=== PATIENT | female | born 1995 | race African-American/Black ===

== ENCOUNTER 2025-06-27 17:45 | Emergency (ER) | payer OTHER, SELFPAY ==
[2025-06-27 17:53] VITALS: BP 111/75
[2025-06-27 18:49] LABS: Hematocrit 33.1 % (37.0-47.0); Hemoglobin 11.3 g/dL (12.0-16.0); Mean Corp Hgb Conc. 34.1 g/dL (33.0-37.0); Mean Corpuscular Volume 87.6 fL (81.0-99.0); Nucleated Red Blood Cells % 0 %; Platelet Count 346 10^3/uL (130-400); Red Cell Dist. Width 11.9 % (11.5-14.5)
[2025-06-27 19:12] LABS: HCG, Serum Qualitative Screen Negative
[2025-06-27 19:24] LABS: ALT (SGPT) 21 U/L (0-35); AST (SGOT) 24 U/L (14-36); Albumin 4.3 g/dl (3.5-5.0); Alkaline Phosphatase 68 U/L (38-126); Blood Urea Nitrogen 13 mg/dl (7-17); Calcium 9.3 mg/dl (8.4-10.2); Carbon Dioxide 25 mmol/L (22-30); Chloride 105 mmol/L (98-107); Glucose 84 mg/dl (70-99); Lithium 0.2 mmol/L (0.6-1.2); Potassium 4.2 mmol/L (3.5-5.1); Sodium 135 mmol/L (135-145); Total Protein 7.5 g/dl (6.3-8.2); eGFR > 60.00
[2025-06-27] MEDS: BENADRYL 50 MG PO (21:53)
[2025-06-27 21:55] LABS: Urine Character Clear (Clear)
[2025-06-27 22:04] LABS: Urine Red Blood Cell 0-2 /HPF (0-2); Urine Squamous Cell >30 /LPF (Few)
[2025-06-27 22:05] LABS: Urine White Cell 21-25 /HPF (0-5)
[2025-06-27 22:20] VITALS: BP 107/71
--- NOTE | 2025-06-27 22:20 | ED.GENMED ---
History of Present Illness
General
Chief Complaint: Medication Reaction
Time Seen by Provider: 06/27/25 20:47
History of Present Illness
History of Present Illness:
Patient is a 30-year-old woman with history of seizures, prior substance use disorder, newly diagnosed bipolar disorder presenting to the emergency department with concerns for lithium toxicity. Patient states that 2 weeks ago she was 302. She was
diagnosed with bipolar disorder. She was started hydroxyzine BuSpar and lithium. She states for the past 2 days she has been feeling weak and balance confused jittery. Her sister who works in the mental health facility said that it could be
related to lithium toxicity as she was on the high dose. She did stop her lithium abruptly 2 days ago. Since stopping that patient's sister does state that some of the symptoms have improved. Patient denies any chest pain shortness of breath
fevers chills nausea vomiting numbness tingling or isolated weakness. She does not believe she is . Denies any SI or HI.
Past History
Past History
ED Past Medical History: Asthma, Psychiatric (Substance use disorder, anxiety/depression, intentional overdose/suicide attempt.) and Other (Chronic low back pain)
ED Past Surgical History: None and Other (Unable to get)
Social History
Tobacco: Smoker
Alcohol: None
Drug: Other (Opioid use disorder as well as benzodiazepine abuse)
Personal: Single
Living: with family
Employment: Not employed
Family History
Family History: Unable to obtain
Phy Exam
Physical Exam
Physical Exam:
GENERAL: Pacing around the room
HEENT: normocephalic, extraocular movements intact, moist oral mucosa
NECK: normal inspection
RESPIRATORY: no respiratory distress, clear to auscultation bilaterally
CARDIOVASCULAR: regular rate and rhythm
ABDOMEN/: soft, non-distended, non-tender to palpation, no rebound or guarding
EXTREMITIES: non-tender, no edema/swelling
NEUROLOGIC: awake and alert, moves all extremities
Psych: Alert and oriented x 3, normal mood and affect, speech slightly slow not pressured, coherent thought process, not tangential, not currently suicidal or homicidal, cooperative and communicating, no active auditory or visual hallucinations,
good insight and judement
SKIN: warm
Course
Orders/Labs/Results
Orders:
Orders
06/27/25 18:34
Test Result ONCE
06/27/25 18:38
Complete Blood Count/With Diff Urgent
Comprehensive Metabolic Panel Urgent
HCG, Serum Qualitative Screen Urgent
[place] Urgent
06/27/25 21:48
Urinalysis Reflex To Culture Urgent
Date Specimen was Collected: 06/27/25
Time Specimen was Collected: 21:47
Urine Microscopic Reflex Cult Urgent
Urine Culture Urgent
NATY Source: U
Specimen Description:
Date Specimen was Collected: 06/27/25
Time Specimen was Collected: 21:47
06/27/25 21:49
Crisis Consult Urgent
Reason for Consult: psych eval
Diphenhydramine [Benadryl] 50 mg PO NOW STA
06/27/25 21:57
Crisis Consult Urgent
Reason for Consult: crisis eval
Abnormal Lab Results
06/27/25 06/27/25
18:38 21:48
WBC 11.4 H 10^3/uL
(4.8-10.8)
RBC 3.78 L 10^6/uL
(4.20-5.40)
Hgb 11.3 L g/dL
(12.0-16.0)
Hct 33.1 L %
(37.0-47.0)
MPV 10.8 H fL
(7.4-10.4)
Absolute Neuts (auto) 7.8 H 10^3/uL
(1.4-6.5)
Absolute Monos (auto) 0.7 H 10^3/uL
(0.1-0.6)
Leukocyte Esterase Rfl 1+ A
(Negative)
Urine WBC (Reflex) 21-25 A /HPF
(0-5)
Urine Bacteria (Reflex) Few A
(Negative)
Urine Albumin (Reflex) 1+ A
(Neg - Trace)
[place] 0.2 L mmol/L
(0.6-1.2)
06/27/25 18:38
06/27/25 18:38
Vital Signs
Initial and Last Documented VS:
Initial Vital Signs
Temp Pulse Resp BP Pulse Ox
98.4 F 84 16 111/75 100
06/27/25 17:53 06/27/25 17:53 06/27/25 17:53 06/27/25 17:53 06/27/25 17:53
Last Documented Vital Signs
Temp Pulse Resp BP Pulse Ox
98.4 F 84 16 111/75 100
06/27/25 17:53 06/27/25 17:53 06/27/25 17:53 06/27/25 17:53 06/27/25 22:20
MDM/Problems Addressed
Differential Diagnosis Includes:
Patient is a 30-year-old woman with history of substance use disorder on Suboxone, newly diagnosed bipolar disorder presenting to the emergency department for concerns for lithium toxicity. On arrival vitals unremarkable exam does show a woman who
is pacing around the room jittery but also slow to respond. Differential consists of medication side effect versus lithium toxicity versus urine infection or metabolic derangement. Blood work was obtained prior to my evaluation which does show
slightly elevated WBC. Otherwise blood work is unremarkable. [place] level is low. I did obtain urinalysis which was contaminated though patient does not have any symptoms. I did discuss with patient at length that she is presenting with signs
of akathisia that we will give Benadryl. Shortly after patient became more restless and agitated requesting to go home. Her and her sister at bedside. She will be going home with sister. I did discuss with them that having crisis evaluate
patient would be helpful as they can make sure that she has to correct outpatient resources. They were amenable for crisis to evaluate them
Crisis evaluated patient. They did come up with the plan that patient's sister who works in the mental health field will call [facility] for outpatient program and they will complete intake at other facilities. Of note patient does have an
appointment with [facility] in early July. And patient is not a threat to herself or others. She does not want to wait for the [facility] to start working. Her said she will be going home with her sister. They both feel comfortable with discharge.
Strict return precautions given
*Pulse Oximetry
SaO2: 100
Oxygen Mode of Delivery: Room air
Patient hypoxic: no
*Critical Care Note
Total Time (30-74mins, 75-104mins- exclusive of procedures): Not Applicable
ED Attending Note
-
Portions of this chart may have been created with voice recognition software.� Occasional wrong word or��sound alike� substitutions may have occurred due to the inherent limitations of voice recognition software.
Discharge Plan
Departure
Patient Disposition: Home (Routine Discharge)
Date of Disposition: 06/27/25
Time of Disposition: 22:19
Patient with high blood pressure during this ER visit?: No
Discharge Problem:
Restlessness
Prescriptions:
No Action
Suboxone
20 mg sublingual DAILY
hydroxyzine pamoate [Vistaril] 50 mg Capsule
50 mg PO BID PRN (Reason: anxiety)
lithium carbonate 450 mg Tablet Extended Release
450 mg PO BID
buspirone [BuSpar] 15 mg Tablet
15 mg PO BID
Referrals:
Elly James MD [Family Provider, Internal Medicine]
Activity Restrictions/Additional Instructions:
Thank You for choosing [facility].
It was a pleasure meeting you and taking part in your care. We hope for your continued healing and wellness.
You were seen in the Emergency Department today. Please follow-up with your psychiatrist as discussed.
We would like for you to follow up with your primary care physician for further evaluation. If you experience fever, worsening of your symptoms, or develop any other new or concerning symptoms, please return to the Emergency Department immediately.
Please see the attached sheet for additional information.
Interventions
Interventions:
*Risk Screen - Suicide Last Done: 06/27/25 17:53
*General Assessment Last Done: 06/27/25 17:53
*Neglect/Abuse Screening Last Done: 06/27/25 19:44
*ED- Fall Risk Assessment Last Done: 06/27/25 19:44
*ED COVID-19 Vaccine History Last Done: 06/27/25 17:53
*ED Influenza Vaccine History Last Done: 06/27/25 17:53
ED-Skin Assessment Last Done: 06/27/25 19:44
ED- Pulmonary Assessment Last Done: 06/27/25 19:44
ED-EENT Assessment Last Done: 06/27/25 19:44
Discharge Date and Time
Print Language: SLOVENIAN
== END 2025-06-27 22:20 | disposition home or self-care (01) ==
LOC: EMR 17:45
PROVIDERS: Emergency Medicine; EMERGENCY PHYSICIAN Student in an Organized Health Care Education/Training Program; FAMILY PHYSICIAN Internal Medicine
DX: R45.1 Restlessness and agitation (principal); F31.9 Bipolar disorder, unspecified; F17.200 Nicotine dependence, unspecified, uncomplicated; F41.9 Anxiety disorder, unspecified; J45.909 Unspecified asthma, uncomplicated; Z91.51 Personal history of suicidal behavior
CPT/HCPCS: 99283; 80053; 80178; 81003; 81015; 84703; 85025; 87086